=== PATIENT | male | born 1995 ===

== ENCOUNTER 2017-09-23 16:23 | Emergency (ER) | payer SELFPAY ==
[~2017-09-23] VITALS: Ht 167.6 cm; Wt 81.8 kg
[2017-09-23 17:11] VITALS: BP 139/69
[2017-09-23 17:53] LABS: CLARITY,URINE CLEAR (Clear); COLOR,URINE YELLOW (Yellow); GLUCOSE, URINE NEGATIVE (Neg); KETONES,URINE NEGATIVE (Neg); LEUKOCYTE ESTERASE ,URINE NEGATIVE (Neg); NITRITES, URINE NEGATIVE (Neg); OCCULT BLOOD,URINE TRACE-INTACT (Neg); PH,URINE 6.5 (4.8-8.0); PROTEIN,URINE NEGATIVE (Neg); UROBILINOGEN,URINE 0.2 E.U/dL (0.2-1.0)
[2017-09-23 18:01] LABS: UA COLLECTION TYPE CLN CATCH MIDSTREAM
[2017-09-23 18:02] LABS: BACTERIA,URINE NONE SEEN /HPF (Neg); MUCUS STRANDS NONE SEEN /LPF (Neg); RBC,URINE 0-2 /HPF (0-2); SQUAMOUS EPITHELIAL CELL,UR FEW /LPF (FEW); WBC,URINE 0-4 /HPF (0-4)
== END 2017-09-23 19:14 | disposition left against medical advice (07) ==
LOC: ER 16:24
DX: R30.0 Dysuria (principal); Z53.21 Procedure and treatment not carried out due to patient leaving prior to being seen by health care provider
CPT/HCPCS: 36415; 81001; 87491; 99281